=== PATIENT | male | born 1935 | race Caucasian/White ===

== ENCOUNTER 2018-11-21 15:55 | Emergency (ER) | payer MEDICARE ==
--- NOTE | 2018-11-21 16:35 | EDM.PDOC ---
ED HPI GENERAL MEDICAL PROBLEM - General Chief Complaint: Respiratory Problem Stated Complaint: POSSIBLE PNEUMONIA Time Seen by Provider: 11/21/18 16:07 Source of Information: Reports: Patient, RN Notes Reviewed - History of Present Illness INITIAL COMMENTS - FREE TEXT/NARRATIVE: 82 year old male comes in with continued cough that first started about 10 days ago. He was prescribed a z pac about 10 days ago. The cough continues about the same, occasionally productive of mildly colored phlegm. He has had some chills. No definite fever. Mildly more short of breath than usual. He did have a sore throat initially but that is gone. Mild chronic leg swelling. - Related Data Allergies Allergy/AdvReac Type Severity Reaction Status Date / Time adhesive Allergy Rash Verified 11/21/18 16:11 Penicillins Allergy Airway Verified 11/21/18 16:11 Tightness povidone-iodine Allergy Rash Verified 11/21/18 16:11 [From Betadine] soap [From Betadine] Allergy Rash Verified 11/21/18 16:11 Home Meds: Home Meds Acetaminophen [Tylenol Arthritis Pain] 1 tab PO TID PRN 11/08/13 [History] Aspirin [Low Dose Aspirin EC] 81 mg PO DAILY 11/08/13 [History] Atenolol 1 tab PO DAILY 11/08/13 [History] Fluticasone Propionate [Flonase] 1 spray NASBOTH DAILY PRN 11/08/13 [History] Furosemide [Lasix] 1 tab PO BID 11/08/13 [History] Gabapentin [Neurontin] 1 tab PO TID 11/08/13 [History] Isosorbide Mononitrate [Isosorbide Mononitrate ER] 60 mg PO DAILY 11/08/13 [ History] Lisinopril 10 mg PO DAILY 11/08/13 [History] Multivitamin [Multivitamins] 1 cap PO DAILY 11/08/13 [History] Nabumetone [Relafen] 500 mg PO BID 11/08/13 [History] Nitroglycerin [Nitrostat] 0.4 mg SL ASDIRECTED PRN 11/08/13 [History] Omeprazole [Prilosec] 20 mg PO DAILY 11/08/13 [History] Simvastatin [Zocor] 20 mg PO BEDTIME 11/08/13 [History] Tamsulosin HCl [Flomax] 1 cap PO DAILY 11/08/13 [History] Warfarin [Coumadin] 2 mg PO DAILY 11/08/13 [History] guaiFEN/Phenyleph/Acetaminophn [Mucinex Fast-Max Cold-Sinus Tb] 400 mg PO DAILY 11/08/13 [History] Doxycycline [Vibramycin] 100 mg PO BID #20 tab 11/21/18 [Rx] Past Medical History Cardiovascular History: Reports: Afib, High Cholesterol, Hypertension Respiratory History: Reports: Bronchitis, Recurrent - Past Surgical History Cardiovascular Surgical History: Reports: Coronary Artery Stent Neurological Surgical History: Reports: Lumbar Spine Musculoskeletal Surgical History: Reports: Knee Replacement Social & Family History - Tobacco Use Smoking Status *Q: Never Smoker - Caffeine Use Caffeine Use: Reports: None - Recreational Drug Use Recreational Drug Use: No ED ROS GENERAL - Review of Systems Review Of Systems: See Below Constitutional: Reports: Chills. Denies: Fever (no definite fever) HEENT: Reports: Rhinitis (chronic), Throat Pain (gone) Respiratory: Reports: Shortness of Breath, Cough, Sputum Cardiovascular: Reports: Dyspnea on Exertion. Denies: Chest Pain Endocrine: Reports: Fatigue GI/Abdominal: Denies: Abdominal Pain, Nausea, Vomiting Musculoskeletal: Denies: Shoulder Pain, Arm Pain Skin: Reports: No Symptoms Neurological: Reports: No Symptoms ED EXAM, GENERAL - Physical Exam Exam: See Below General Appearance: Alert, No Apparent Distress Eye Exam: Bilateral Eye: PERRL Throat/Mouth: Normal Inspection, Normal Oropharynx Head: Atraumatic Neck: Supple Respiratory/Chest: No Respiratory Distress, Lungs Clear, Normal Breath Sounds. No: Rales, Rhonchi, Wheezing Cardiovascular: Regular Rate, Rhythm GI/Abdominal: Non-Tender Extremities: Pedal Edema (very mild bilat leg swelling). No: Leg Pain, Increased Warmth, Redness Course - Vital Signs Last Recorded V/S: Last Vital Signs Temp 97.9 F 11/21/18 16:09 Pulse 87 11/21/18 16:09 Resp 18 11/21/18 16:09 BP 141/74 H 11/21/18 16:09 Pulse Ox 94 L 11/21/18 16:09 - Orders/Labs/Meds Orders: Active Orders 24 hr Category Date Time Status Influenza Vaccine Charge [RC] .DISCHARGE Care 11/21/18 16:17 Active Chest 1V Frontal [CR] Stat Exams 11/21/18 16:30 Taken Labs: Laboratory Tests 11/21/18 11/21/18 Range/Units 16:44 16:44 WBC 7.59 (4.23-9.07) K/mm3 RBC 4.34 L (4.63-6.08) M/mm3 Hgb 13.8 (13.7-17.5) gm/dl Hct 39.6 L (40.1-51.0) % MCV 91.2 (79.0-92.2) fl MCH 31.8 (25.7-32.2) pg MCHC 34.8 (32.2-35.5) g/dl RDW Std Deviation 44.9 H (35.1-43.9) fL Plt Count 183 (163-337) K/mm3 MPV 11.4 (9.4-12.3) fl Neut % (Auto) 61.9 (34.0-67.9) % Lymph % (Auto) 25.8 (21.8-53.1) % [place] % (Auto) 9.4 (5.3-12.2) % Eos % (Auto) 2.6 (0.8-7.0) Baso % (Auto) 0.3 (0.1-1.2) % Neut # (Auto) 4.70 (1.78-5.38) K/mm3 Lymph # (Auto) 1.96 (1.32-3.57) K/mm3 [place] # (Auto) 0.71 (0.30-0.82) K/mm3 Eos # (Auto) 0.20 (0.04-0.54) K/mm3 Baso # (Auto) 0.02 (0.01-0.08) K/mm3 Manual Slide Review C-Reactive Protein < 0.2 (<1.0) mg/dL Meds: Medications Discontinued Medications Generic Name Dose Route Start Last Admin Trade Name Freq PRN Reason Stop Dose Admin Doxycycline Hyclate 100 mg 11/21/18 17:51 Vibramycin PO 11/21/18 17:52 ONETIME ONE Influenza Virus Vaccine 1 each 11/21/18 16:17 Pharmacy To Dose - Influenza Vaccine IM 11/21/18 16:18 ONETIME ONE Influenza Virus Vaccine 180 mcg 11/21/18 16:30 Fluzone High-Dose 2019-20 Syringe IM 11/21/18 16:31 .ONCE ONE Departure - Departure Time of Disposition: 18:01 Disposition: Home, Self-Care 01 Condition: Fair Clinical Impression: Bronchitis - Discharge Information Forms: ED Department Discharge Additional Instructions: doxycycline 100 mg twice daily for 10 days. Your first dose has been given here in the ED. Prescription has been sent electronic to [facility]. Vaporizer or steam as needed. Continue other medications as prescribed. Follow up with your regular medical provider or [facility] in about 10 days for recheck. Return to ED as needed if symptoms worsening in any way. - My Orders Last 24 Hours: My Active Orders 11/21/18 16:17 Influenza Vaccine Charge [RC] .DISCHARGE 11/21/18 16:30 Chest 1V Frontal [CR] Stat - Assessment/Plan Last 24 Hours: My Active Orders 11/21/18 16:17 Influenza Vaccine Charge [RC] .DISCHARGE 11/21/18 16:30 Chest 1V Frontal [CR] Stat
[2018-11-21] MEDS ORDERED: Doxycycline 100 MG Cap PO ONE (17:51)
--- NOTE | 2018-11-21 20:16 | CR ---
Chest: Portable view of the chest was obtained. Comparison: Prior chest x-ray of 01/20/10. Slight increased density along the left cardiac margin is noted most likely due to an area of atelectasis. No acute parenchymal change is otherwise seen. Heart is felt to be mildly enlarged. Upper mediastinum is normal. Bony structures are grossly intact. Impression: 1. Findings as noted above. Nothing acute is definitely appreciated. Diagnostic code #2
== END 2018-11-21 18:15 | disposition home or self-care (01) ==
LOC: JD.ED 15:55
DX: J40 Bronchitis, not specified as acute or chronic (principal); E78.00 Pure hypercholesterolemia, unspecified; I48.91 Unspecified atrial fibrillation; Z79.82 Long term (current) use of aspirin; Z79.01 Long term (current) use of anticoagulants; Z91.048 Other nonmedicinal substance allergy status; Z88.8 Allergy status to other drugs, medicaments and biological substances; Z79.899 Other long term (current) drug therapy
CPT/HCPCS: 36415; 71045; 85025; 86140; 99283; A9270

== ENCOUNTER 2019-02-28 17:36 | Emergency (ER) | payer MEDICARE ==
[2019-02-28] MEDS ORDERED: Sodium Chloride 0.9% 10 ML Syringe FLUSH PRN (18:15)
--- NOTE | 2019-02-28 19:07 | EDM.PDOC ---
ED HPI GENERAL MEDICAL PROBLEM - General Chief Complaint: General Stated Complaint: ISSUE WITH HIS BLOOD SENT BY [facility] Time Seen by Provider: 02/28/19 18:09 Source of Information: Reports: Patient History Limitations: Reports: No Limitations - History of Present Illness INITIAL COMMENTS - FREE TEXT/NARRATIVE: The patient presents with supratherapeutic INR. He is on coumadin for heart disease according to him and his INR was 12.9 today. The recommended to hold the coumadin today and tomorrow and get a dose of vitamin K. They did not have any in [place] where he is from. He has no headache, fever, chills, cough, chest pain, shortness of breath, abdominal pain, nausea, vomiting or any bleeding. He did not take extra doses of his medications and did not eat anything he is not supposed to. Onset: Gradual Duration: Day(s): Severity: Moderate Improves with: Reports: None Worsens with: Reports: None Associated Symptoms: Reports: No Other Symptoms - Related Data Allergies Allergy/AdvReac Type Severity Reaction Status Date / Time adhesive Allergy Rash Verified 02/28/19 17:51 Penicillins Allergy Airway Verified 02/28/19 17:51 Tightness povidone-iodine Allergy Rash Verified 02/28/19 17:51 [From Betadine] soap [From Betadine] Allergy Rash Verified 02/28/19 17:51 Home Meds: Home Meds Aspirin [Low Dose Aspirin EC] 81 mg PO DAILY 11/08/13 [History] Fluticasone Propionate [Flonase] 1 spray NASBOTH DAILY PRN 11/08/13 [History] Gabapentin [Neurontin] 600 mg PO DAILY 11/08/13 [History] Multivitamin [Multivitamins] 1 cap PO DAILY 11/08/13 [History] Nabumetone [Relafen] 500 mg PO BID 11/08/13 [History] Omeprazole [Prilosec] 20 mg PO DAILY 11/08/13 [History] Tamsulosin HCl [Flomax] 1 cap PO DAILY 11/08/13 [History] atenoloL [Atenolol] 1 tab PO DAILY 11/08/13 [History] Acetaminophen [Tylenol Extra Strength] 500 mg PO BID 02/28/19 [History] Albuterol Inhaler/Ventolin 02/28/19 [History] Baclofen 10 mg PO BID 02/28/19 [History] Beta-Carotene(A)-Vits C,E/Mins [Vision Vitamins] 1 tab PO BID 02/28/19 [History] Cholecalciferol (Vitamin D3) [Vitamin D3] 2,000 unit PO DAILY 02/28/19 [History] Furosemide [Lasix] 40 mg PO DAILY 02/28/19 [History] Gabapentin [Neurontin] 900 mg PO BEDTIME 02/28/19 [History] Isosorbide Mononitrate [Imdur] 30 mg PO BEDTIME 02/28/19 [History] Isosorbide Mononitrate [Imdur] 60 mg PO DAILY 02/28/19 [History] Mucinex. 02/28/19 [History] Nitroglycerin 0.4 mg SL Q5M PRN 02/28/19 [History] Simvastatin 40 mg PO BEDTIME 02/28/19 [History] Warfarin [Coumadin] 2.5 mg PO MOWEFR 02/28/19 [History] Warfarin [Coumadin] 5 mg PO SUTUTHSA 02/28/19 [History] traMADol [Ultram] 50 mg PO Q4HR PRN 02/28/19 [History] Past Medical History HEENT History: Reports: Macular Degeneration Cardiovascular History: Reports: Afib, High Cholesterol, Hypertension, [place] Respiratory History: Reports: Bronchitis, Recurrent Gastrointestinal History: Reports: GERD Genitourinary History: Reports: BPH Musculoskeletal History: Reports: Arthritis - Past Surgical History Cardiovascular Surgical History: Reports: Coronary Artery Stent Neurological Surgical History: Reports: Lumbar Spine Musculoskeletal Surgical History: Reports: Knee Replacement Social & Family History - Family History Family Medical History: Noncontributory - Tobacco Use Smoking Status *Q: Former Smoker Used Tobacco, but Quit: Yes Month/Year Tobacco Last Used: 02/2001 - Caffeine Use Caffeine Use: Reports: Coffee - Recreational Drug Use Recreational Drug Use: No ED ROS GENERAL - Review of Systems Review Of Systems: See Below Constitutional: Reports: No Symptoms HEENT: Reports: No Symptoms Respiratory: Reports: No Symptoms Cardiovascular: Reports: No Symptoms Endocrine: Reports: No Symptoms GI/Abdominal: Reports: No Symptoms : Reports: No Symptoms Musculoskeletal: Reports: No Symptoms ED EXAM, GENERAL - Physical Exam Exam: See Below Exam Limited By: No Limitations General Appearance: Alert, No Apparent Distress Ears: Normal External Exam Nose: Normal Inspection Head: Atraumatic, Normocephalic Neck: Normal Inspection Respiratory/Chest: No Respiratory Distress, Lungs Clear, Normal Breath Sounds Cardiovascular: Regular Rate, Rhythm, No Edema, No Murmur GI/Abdominal: Soft, Non-Tender, No Organomegaly, No Mass Extremities: Normal Inspection Neurological: Alert, Oriented, No Motor/Sensory Deficits Course - Vital Signs Last Recorded V/S: Last Vital Signs Temp 97.1 F 02/28/19 17:47 Pulse 55 L 02/28/19 17:47 Resp 19 02/28/19 17:47 BP 160/71 H 02/28/19 17:47 Pulse Ox 96 02/28/19 17:47 - Orders/Labs/Meds Orders: Active Orders 24 hr Category Date Time Status Cardiac Monitoring [RC] . DIRECTED Care 02/28/19 18:15 Active Peripheral IV Care [RC] . DIRECTED Care 02/28/19 18:16 Active Sodium Chloride 0.9% [Saline Flush] Med 02/28/19 18:15 Active 10 ml FLUSH ASDIRECTED PRN Peripheral IV Insertion Adult [OM.PC] Stat Oth 02/28/19 18:15 Ordered Medication Orders Sodium Chloride (Saline Flush) 10 ml FLUSH ASDIRECTED PRN PRN Reason: Keep Vein Open Last Admin: 02/28/19 18:50 Dose: 10 ml Labs: Laboratory Tests 02/28/19 02/28/19 02/28/19 Range/Units 18:50 18:50 18:50 WBC 6.61 (4.23-9.07) K/mm3 RBC 4.32 L (4.63-6.08) M/mm3 Hgb 13.1 L (13.7-17.5) gm/dl Hct 39.8 L (40.1-51.0) % MCV 92.1 (79.0-92.2) fl MCH 30.3 (25.7-32.2) pg MCHC 32.9 (32.2-35.5) g/dl RDW Std Deviation 45.6 H (35.1-43.9) fL Plt Count 145 L (163-337) K/mm3 MPV 11.0 (9.4-12.3) fl Neut % (Auto) 51.0 (34.0-67.9) % Lymph % (Auto) 34.9 (21.8-53.1) % [place] % (Auto) 10.9 (5.3-12.2) % Eos % (Auto) 2.4 (0.8-7.0) Baso % (Auto) 0.3 (0.1-1.2) % Neut # (Auto) 3.37 (1.78-5.38) K/mm3 Lymph # (Auto) 2.31 (1.32-3.57) K/mm3 [place] # (Auto) 0.72 (0.30-0.82) K/mm3 Eos # (Auto) 0.16 (0.04-0.54) K/mm3 Baso # (Auto) 0.02 (0.01-0.08) K/mm3 PT > 90.0 H* (9.7-12.0) SECONDS INR TNP Sodium 146 H (136-145) mEq/L Potassium 4.0 (3.5-5.1) mEq/L Chloride 108 H (98-107) mEq/L Carbon Dioxide 27 (21-32) mEq/L Anion Gap 15.0 (5-15) BUN 26 H (7-18) mg/dL Creatinine 1.4 H (0.7-1.3) mg/dL Est Cr Clr Drug Dosing 40.04 mL/min Estimated GFR (MDRD) 49 (>60) mL/min BUN/Creatinine Ratio 18.6 H (14-18) Glucose 104 (83-115) mg/dL Calcium 8.3 L (8.5-10.1) mg/dL Total Bilirubin 0.4 (0.2-1.0) mg/dL AST 14 L (15-37) U/L ALT 21 (16-63) U/L Alkaline Phosphatase 73 (46-116) U/L Total Protein 7.0 (6.4-8.2) g/dl Albumin 3.6 (3.4-5.0) g/dl Globulin 3.4 gm/dL Albumin/Globulin Ratio 1.1 (1-2) Meds: Medications Generic Name Dose Route Start Last Admin Trade Name Freq PRN Reason Stop Dose Admin Sodium Chloride 10 ml 02/28/19 18:15 02/28/19 18:50 Saline Flush FLUSH 10 ml ASDIRECTED PRN Administration Keep Vein Open Discontinued Medications Generic Name Dose Route Start Last Admin Trade Name Jacqueline PRN Reason Stop Dose Admin Phytonadione 5 mg 02/28/19 18:20 02/28/19 19:11 Aquamephyton PO 02/28/19 18:21 5 mg ONETIME ONE Administration - Re-Assessments/Exams Free Text/Narrative Re-Assessment/Exam: 02/28/19 19:06 I ordered an IV saline lock, labs and an INR. I also ordered vitamin K 5mg by mouth. 02/28/19 19:43 His CBC looks good. His PT is >90 and they cannot calculate his INR ours goes up to 8. His Na is slightly elevated at 146. His creatinine is slightly elevated at 1.4. Departure - Departure Time of Disposition: 19:45 Disposition: Home, Self-Care 01 Condition: Good Clinical Impression: Supratherapeutic INR - Discharge Information *PRESCRIPTION DRUG MONITORING PROGRAM REVIEWED*: Not Applicable *COPY OF PRESCRIPTION DRUG MONITORING REPORT IN PATIENT [place]: Not Applicable Referrals: Lon Chan MD [Primary Care Provider] - Forms: ED Department Discharge Additional Instructions: Hold your coumadin tonight and tomorrow. Have your INR checked tomorrow or the next day. Be careful not to fall. Please return if you are worse. Sepsis Event Note - Evaluation Sepsis Screening Result: No Definite Risk - Focused Exam Vital Signs: Vital Signs Temp Pulse Resp BP Pulse Ox 02/28/19 17:47 97.1 F 55 L 19 160/71 H 96 Date Exam was Performed: 02/28/19 Time Exam was Performed: 19:43 - My Orders Last 24 Hours: My Active Orders 02/28/19 18:15 Cardiac Monitoring [RC] . DIRECTED Sodium Chloride 0.9% [Saline Flush] 10 ml FLUSH ASDIRECTED PRN Peripheral IV Insertion Adult [OM.PC] Stat 02/28/19 18:16 Peripheral IV Care [RC] . DIRECTED - Assessment/Plan Last 24 Hours: My Active Orders 02/28/19 18:15 Cardiac Monitoring [RC] . DIRECTED Sodium Chloride 0.9% [Saline Flush] 10 ml FLUSH ASDIRECTED PRN Peripheral IV Insertion Adult [OM.PC] Stat 02/28/19 18:16 Peripheral IV Care [RC] . DIRECTED
== END 2019-02-28 19:58 | disposition home or self-care (01) ==
LOC: JD.ED 17:36
DX: R79.1 Abnormal coagulation profile (principal); I10 Essential (primary) hypertension; E78.00 Pure hypercholesterolemia, unspecified; I48.91 Unspecified atrial fibrillation; I25.2 Old myocardial infarction; K21.9 Gastro-esophageal reflux disease without esophagitis; M19.90 Unspecified osteoarthritis, unspecified site; N40.0 Benign prostatic hyperplasia without lower urinary tract symptoms; Z87.891 Personal history of nicotine dependence; Z88.0 Allergy status to penicillin; Z91.048 Other nonmedicinal substance allergy status; Z88.8 Allergy status to other drugs, medicaments and biological substances; Z79.82 Long term (current) use of aspirin; Z79.899 Other long term (current) drug therapy
CPT/HCPCS: 36415; 80053; 85025; 85610; 99284; J3430